=== PATIENT | female | born 1985 | race Caucasian/White ===

== ENCOUNTER 2016-07-25 21:28 | Emergency (ER) | payer OTHER ==
[2016-07-25] MEDS ORDERED: Ondansetron INJ* 2 MG/ML VIAL IV ONE (22:23)
[2016-07-25] MEDS ORDERED: NS 0.9% 1000 ML* 2,000 ML IV ONE (22:23)
[2016-07-25] MEDS ORDERED: Ketorolac INJ* 30 MG/ML 1 ML VIAL IV ONE (22:23)
[2016-07-25 23:12] LABS: Hematocrit 33 % (35-47); Hemoglobin 10.9 g/dl (12.0-16.0); Mean Corpuscular HGB Conc 33 g/dl (31-36); Mean Corpuscular Hemoglobin 24 pg (27-31); Mean Corpuscular Volume 74 fL (80-97); Mean Platelet Volume 7 um3 (7.4-10.4); Red Cell Distribution Width 15 % (10.5-15); White Blood Count 10.9 10^3/ul (3.5-10.8)
[2016-07-25 23:13] LABS: Add Diff/Slide Review? Slide Review Added; Comments Flag Yes
[2016-07-25 23:28] LABS: ALT 12 U/L (7-52); AST 13 U/L (13-39); Alkaline Phosphatase 59 U/L (34-104); Anion Gap 7 mmol/L (2-11); BUN/Creatinine Ratio 26.3 (8-20); Blood Urea Nitrogen 15 mg/dL (6-24); C Reactive Protein 19.97 mg/L (< 5.00); CO2 Carbon Dioxide 29 mmol/L (22-32); Calcium 9.1 mg/dL (8.6-10.3); Chloride 101 mmol/L (101-111); EGFR African American 158.1 (>60); EGFR Non-African American 122.9 (>60); Globulin 3.1 g/dL (2-4); Glucose 115 mg/dL (70-100); Lipase 19 U/L (11.0-82.0); Potassium 3.8 mmol/L (3.5-5.0); Sodium 137 mmol/L (133-145); Total Protein 7.1 g/dL (6.4-8.9)
[2016-07-25 23:52] LABS: TSH (Thyroid Stimulating Horm) 4.44 mcIU/mL (0.34-5.60)
[2016-07-25 23:55] LABS: Urine Bacteria Absent (Absent); Urine Bilirubin Negative (Negative); Urine Glucose Negative (Negative); Urine Nitrite Negative (Negative)
--- NOTE | 2016-07-26 01:08 | ED ---
Jermaine Patel Janilya, scribed for Imtiaz Abel MD on 07/25/16 at 2210 . Headache - HPI Summary HPI Summary: A 30 y/o female came in presenting w/ a c/o migraine for about 2 days and vaginal discharge and abd pain for about 3-4 days. Pt reports she usually has baseline migraine associated w/ her menstrual period. However, this time the severity is rated "off the charts". It is localized on the left side; typically , her migraines are on the right or left side. What is different from her usual migraines is that the pain radiates down her neck. Also, pain medication and sleep usually have alleviated her migraines in the past; not this time. According to pt, the severity of her LINDA caused her to become very nauseous, shaky, and dizzy. She has vomited 4 times. Her last menstrual period was on 04/2017. It lasted only 4 days; it normally lasts a week. On the , she noticed considerable amount of bloody vaginal discharge. It had resolved on its own. However, pt reports she noticed light vaginal discharge again 3-4 days ago. Pt denies diarrhea and dysuria. In addition, pt has left sided abd pain. Now, at [facility], LINDA mostly subsided and abd pain rated 7/10. Pt has 4 kids and had one miscarriage in 2007. PMHx 4 Caesarean sections. - History Of Current Complaint Chief Complaint: EDHeadache Stated Complaint: HEADACHE/CRAMPING LT SIDE AND LOWER BACK Time Seen by Provider: 07/25/16 22:01 Hx Obtained From: Patient Hx Last Menstrual Period: 03/21/15 Onset/Duration: Gradual Onset, Started days ago Initially Headache Was: "Worst Headache Ever" Timing: Constant - Allergies/Home Medications Allergies/Adverse Reactions: Allergies Allergy/AdvReac Type Severity Reaction Status Date / Time Fexofenadine [From [place]] Allergy Rash Verified 04/30/15 12:10 Hydrocodone [From Vicodin] Allergy Rash Verified 04/30/15 12:10 PMH/Surg Hx/FS Hx/Imm Hx - Surgical History Surgery Procedure, Year, and Place: 4 c sections. Tonsils and Adnoids. [place] [facility] Infectious Disease History: No Infectious Disease History: Denies: Hx Known/Suspected VRSA, Traveled Outside the [place] in Last 30 Days - Family History Known Family History: Positive: Cardiac Disease, Hypertension Negative: Diabetes - Social History Lives: With Family Alcohol Use: None Substance Use Type: Reports: None Smoking Status (MU): Never Smoked Tobacco Review of Systems Positive: Abdominal Pain - left sided, Vomiting, Nausea. Negative: Diarrhea Positive: discharge - bloody vaginal . Negative: dysuria Neurological: Other - shaky and dizzy Positive: Headache - migraine that radiates down to her neck All Other Systems Reviewed And Are Negative: Yes Physical Exam Triage Information Reviewed: Yes Vital Signs On Initial Exam: Initial Vitals Temp Pulse Resp BP Pulse Ox 99.3 F 88 20 155/97 100 07/25/16 21:32 07/25/16 21:32 07/25/16 21:32 07/25/16 21:32 07/25/16 21:32 Vital Signs Reviewed: Yes Appearance: Positive: Well-Appearing, No Pain Distress Skin: Positive: Warm, Skin Color Reflects Adequate Perfusion, Dry Head/Face: Positive: Normal Head/Face Inspection Eyes: Positive: EOMI, KEVAN ENT: Positive: Normal ENT inspection Neck: Positive: Supple, Nontender Respiratory/Lung Sounds: Positive: Clear to Auscultation, Breath Sounds Present Cardiovascular: Positive: RRR Abdomen Description: Positive: Nontender, Soft Bowel Sounds: Positive: Present Pelvic Exam: Positive: external exam normal, no cerv. motion tender, other - SOME WHITE DISCHARGE WITH SPECKS OF OLD BLOOD. Negative: active bleeding, lesions Musculoskeletal: Positive: Normal, Strength/ROM Intact Neurological: Positive: Normal, Sensory/Motor Intact, Alert, Oriented to Person Place, Time Psychiatric: Positive: Affect/Mood Appropriate Diagnostics - Vital Signs Vital Signs Temp Pulse Resp BP Pulse Ox 07/25/16 21:32 99.3 F 88 20 155/97 100 - Laboratory Lab Results: Lab Results 07/25/16 07/25/16 07/25/16 Range/Units 23:00 23:00 23:00 WBC 10.9 H (3.5-10.8) 10^3/ul RBC 4.50 (4.0-5.4) 10^6/ul Hgb 10.9 L (12.0-16.0) g/dl Hct 33 L (35-47) % MCV 74 L (80-97) fL MCH 24 L (27-31) pg MCHC 33 (31-36) g/dl RDW 15 (10.5-15) % Plt Count 369 (150-450) 10^3/ul MPV 7 L (7.4-10.4) um3 Neut % (Auto) 77.7 (38-83) % Lymph % (Auto) 15.4 L (25-47) % Hall % (Auto) 6.0 (1-9) % Eos % (Auto) 0.5 (0-6) % Baso % (Auto) 0.4 (0-2) % Absolute Neuts (auto) 8.4 H (1.5-7.7) 10^3/ul Absolute Lymphs (auto) 1.7 (1.0-4.8) 10^3/ul Absolute Monos (auto) 0.7 (0-0.8) 10^3/ul Absolute Eos (auto) 0.1 (0-0.6) 10^3/ul Absolute Basos (auto) 0 (0-0.2) 10^3/ul Absolute Nucleated RBC 0 10^3/ul Nucleated RBC % 0 INR (Anticoag Therapy) 0.92 (0.89-1.11) APTT 29.4 (26.0-36.3) seconds Sodium 137 (133-145) mmol/L Potassium 3.8 (3.5-5.0) mmol/L Chloride 101 (101-111) mmol/L Carbon Dioxide 29 (22-32) mmol/L Anion Gap 7 (2-11) mmol/L BUN 15 (6-24) mg/dL Creatinine 0.57 (0.51-0.95) mg/dL Est GFR ( Amer) 158.1 (>60) Est GFR (Non-Af Amer) 122.9 (>60) BUN/Creatinine Ratio 26.3 H (8-20) Glucose 115 H (70-100) mg/dL Lactic Acid (0.5-2.0) mmol/L Calcium 9.1 (8.6-10.3) mg/dL Total Bilirubin 0.30 (0.2-1.0) mg/dL AST 13 (13-39) U/L ALT 12 (7-52) U/L Alkaline Phosphatase 59 (34-104) U/L C-Reactive Protein 19.97 H (< 5.00) mg/L Total Protein 7.1 (6.4-8.9) g/dL Albumin 4.0 (3.2-5.2) g/dL Globulin 3.1 (2-4) g/dL Albumin/Globulin Ratio 1.3 (1-3) Lipase 19 (11.0-82.0) U/L TSH 4.44 (0.34-5.60) mcIU/mL Beta HCG, Quant < 0.60 mIU/mL Urine Color Urine Appearance Urine pH (5-9) Ur Specific Java (1.010-1.030) Urine Protein (Negative) Urine Ketones (Negative) Urine Blood (Negative) Urine Nitrate (Negative) Urine Bilirubin (Negative) Urine Urobilinogen (Negative) Ur Leukocyte Esterase (Negative) Urine WBC (Auto) (Absent) Urine RBC (Auto) (Absent) Ur Squamous Epith Cells (Absent) Urine Bacteria (Absent) Urine Glucose (Negative) 07/25/16 07/25/16 Range/Units 23:00 23:40 WBC (3.5-10.8) 10^3/ul RBC (4.0-5.4) 10^6/ul Hgb (12.0-16.0) g/dl Hct (35-47) % MCV (80-97) fL MCH (27-31) pg MCHC (31-36) g/dl RDW (10.5-15) % Plt Count (150-450) 10^3/ul MPV (7.4-10.4) um3 Neut % (Auto) (38-83) % Lymph % (Auto) (25-47) % Hall % (Auto) (1-9) % Eos % (Auto) (0-6) % Baso % (Auto) (0-2) % Absolute Neuts (auto) (1.5-7.7) 10^3/ul Absolute Lymphs (auto) (1.0-4.8) 10^3/ul Absolute Monos (auto) (0-0.8) 10^3/ul Absolute Eos (auto) (0-0.6) 10^3/ul Absolute Basos (auto) (0-0.2) 10^3/ul Absolute Nucleated RBC 10^3/ul Nucleated RBC % INR (Anticoag Therapy) (0.89-1.11) APTT (26.0-36.3) seconds Sodium (133-145) mmol/L Potassium (3.5-5.0) mmol/L Chloride (101-111) mmol/L Carbon Dioxide (22-32) mmol/L Anion Gap (2-11) mmol/L BUN (6-24) mg/dL Creatinine (0.51-0.95) mg/dL Est GFR ( Amer) (>60) Est GFR (Non-Af Amer) (>60) BUN/Creatinine Ratio (8-20) Glucose (70-100) mg/dL Lactic Acid 0.6 (0.5-2.0) mmol/L Calcium (8.6-10.3) mg/dL Total Bilirubin (0.2-1.0) mg/dL AST (13-39) U/L ALT (7-52) U/L Alkaline Phosphatase (34-104) U/L C-Reactive Protein (< 5.00) mg/L Total Protein (6.4-8.9) g/dL Albumin (3.2-5.2) g/dL Globulin (2-4) g/dL Albumin/Globulin Ratio (1-3) Lipase (11.0-82.0) U/L TSH (0.34-5.60) mcIU/mL Beta HCG, Quant mIU/mL Urine Color Yellow Urine Appearance Clear Urine pH 7.0 (5-9) Ur Specific Java 1.010 (1.010-1.030) Urine Protein Negative (Negative) Urine Ketones Negative (Negative) Urine Blood 1+ H (Negative) Urine Nitrate Negative (Negative) Urine Bilirubin Negative (Negative) Urine Urobilinogen Negative (Negative) Ur Leukocyte Esterase Negative (Negative) Urine WBC (Auto) Trace(0-5/hpf) (Absent) Urine RBC (Auto) 1+(3-5/hpf) H (Absent) Ur Squamous Epith Cells Present H (Absent) Urine Bacteria Absent (Absent) Urine Glucose Negative (Negative) Result Diagrams: 07/25/16 23:00 07/25/16 23:00 Lab Statement: Any lab studies that have been ordered have been reviewed, and results considered in the medical decision making process. Headache Course/Dx - Course Assessment/Plan: LINDA IMPROVED IN ED. DISCUSSED RESULTS WITH PATIENT. CT ABD/ PELVIS AND PELVIC CX RESULTS PENDING AT SHIFT CHANGE. DISCHARGE HOME STABLE. PATIENT WILL F/U WITH HER OBGYN. - Diagnoses Provider Diagnoses: Abdominal pain, Headache, Ovarian cyst Discharge - Discharge Plan Condition: Stable Disposition: HOME Patient Education Materials: Acute Abdominal Pain (ED), General Headache (ED), Ovarian Cyst (ED) Referrals: No Primary Care Phys,NOPCP [Primary Care Provider] - Additional Instructions: FOLLOW UP WITH YOUR OBGYN DOCTOR. RETURN TO THE EMERGENCY DEPARTMENT FOR ANY WORSENING OF YOUR CONDITION; PAIN, FEVER, YOU FEEL ILL OR QUESTIONS OR CONCERNS. The documentation as recorded by the Jermaine acosta Janilya accurately reflects the service I personally performed and the decisions made by me, Imtiaz Abel MD.
--- NOTE | 2016-07-26 02:35 | ED ---
Raad Patel Aidan, scribed for Jose Ramon Partida on 07/26/16 at 0212 . Progress - Progress Note Progress Note: The patient was signed out to follow a CT scan, which shows a left adnexal cyst. She feels fine. She also had an US. She should follow up with an OBGYN doctor. Results for STI is pending, otherwise, the Patient should follow up results with a doctor. Course/Dx - Diagnoses Provider Diagnoses: Abdominal pain, Headache, Ovarian cyst The documentation as recorded by the Raad acosta Aidan accurately reflects the service I personally performed and the decisions made by Jaquan hayes Emmanuel.
[2016-07-26 02:37] VITALS: BP 109/62
--- NOTE | 2016-07-26 07:13 | RAD ---
Indication: Left side pelvic pain. COMPARISON: There are no prior studies available for comparison. TECHNIQUE: Multiple real-time transabdominal images of the pelvis were obtained. FINDINGS: The uterus is retroflexed and normal in size, shape and echogenicity. The uterus measured 9.3 x 4.4 x 6.4 cm. The endometrial echo measured 0.7 cm in thickness. The right ovary measured 2.9 x 1.7 x 3.2 cm. The left ovary measured 4.1 x 2.5 x 3.6 cm. There is vascular flow within both ovaries. There is a small simple cyst in the left ovary measuring 2.2 x 2.5 x 2.4 cm. No free intraperitoneal fluid is seen. IMPRESSION: SMALL 2.5 CM SIMPLE CYST IN THE RIGHT OVARY MOST CONSISTENT WITH A FOLLICULAR CYST.
--- NOTE | 2016-07-26 07:42 | RAD ---
INDICATION: Left flank and left lower quadrant abdominal pain and hematuria. COMPARISON: Correlation is made with a prior pelvic ultrasound from July 25, 2016. TECHNIQUE: A CT scan of the abdomen and pelvis was performed without intravenous or oral contrast. Contiguous axial sections were obtained from the lung bases through the symphysis pubis. Images were reconstructed in the coronal and sagittal planes. FINDINGS: The lung bases are clear. No pleural effusion is present. The liver and spleen are normal in density. No significant focal abnormality is seen on this noncontrast study. No calcified gallstones are noted. No pancreatic ductal distention or calcifications are seen. The adrenal glands and kidneys are normal in size. No renal calculi or hydronephrosis is seen. No ureteral or bladder calculi are seen. The aorta is normal in caliber without significant calcific plaque. No significant enlarged retroperitoneal lymph nodes are seen. The stomach, small and large bowel appear nondistended. The appendix is within normal limits. There is mild descending and sigmoid diverticulosis without evidence for diverticulitis. There is a small periumbilical hernia containing fat. The uterus is retroflexed and normal in size. There is a 2.5 cm left ovarian cyst present. No free intraperitoneal air or fluid is seen. No significant focal osseous abnormality is seen. IMPRESSION: 2.5 CM LEFT OVARIAN CYST.
== END 2016-07-26 02:35 | disposition home or self-care (01) ==
LOC: ED 21:28
DX: N83.209 Unspecified ovarian cyst, unspecified side (principal); R10.9 Unspecified abdominal pain; R51 Headache; M54.2 Cervicalgia; R11.2 Nausea with vomiting, unspecified
CPT/HCPCS: 36415; 74176; 76856; 80053; 81003; 81015; 83605; 83690; 84443; 84702; 85025; 85610; 85730; 86140; 87480; 87491; 87510; 87591; 87661; 96361; 96374; 96375; 99282; J1885; J2405

== ENCOUNTER 2017-08-01 09:59 | Emergency (ER) | payer OTHER ==
[2017-08-01] MEDS ORDERED: Acetaminophen TAB* 325 MG PO ONE (11:44)
[2017-08-01] MEDS ORDERED: NS 0.9% 1000 ML* 1,000 ML IV ONE (11:44)
[2017-08-01 12:14] LABS: Urine Appearance Cloudy; Urine Blood 1+ (Negative); Urine Color Yellow; Urine Ketones Negative (Negative); Urine Protein Negative (Negative); Urine Urobilinogen Negative (Negative)
[2017-08-01 12:26] LABS: Hematocrit 30 % (35-47); Hemoglobin 9.3 g/dl (12.0-16.0); Mean Corpuscular HGB Conc 32 g/dl (31-36); Mean Corpuscular Hemoglobin 23 pg (27-31); Mean Corpuscular Volume 72 fL (80-97); Mean Platelet Volume 7 um3 (7.4-10.4); Platelet Count 315 10^3/ul (150-450); Red Blood Count 4.13 10^6/ul (4.0-5.4); Red Cell Distribution Width 17 % (10.5-15); White Blood Count 11.1 10^3/ul (3.5-10.8)
[2017-08-01 12:43] LABS: EGFR Non-African American 156.4 (>60)
--- NOTE | 2017-08-01 13:17 | RAD ---
INDICATION: Limited evaluation. Mechanical fall. Evaluate placenta. COMPARISON: None TECHNIQUE: Transabdominal imaging was performed as part of a limited evaluation. A anatomic survey was not requested or performed. FINDINGS: There is a single intrauterine gestation with movement and cardiac activity of 138 bpm. The placenta is posterior in location the caudal extent of the placenta is difficult to evaluate given the patient's body habitus. The cervix is closed measuring 4.6 cm. The amniotic fluid index is normal. The estimated gestational age based on biparietal diameter, head circumference, abdominal circumference, and femur length corresponds to 20 weeks 4 days, 21 weeks 3 days, 21 weeks 4 days, and 21 weeks 2 days resulting a composite value of 21 weeks 2 days. IMPRESSION: ARRIVAL INTRAUTERINE GESTATION AT 21 WEEKS 2 DAYS. THERE ARE NO DEFINITIVE ABNORMALITIES OF THE PLACENTA BUT THE LOWER EDGE OF THE PLACENTA IS DIFFICULT TO EVALUATE SECONDARY TO BODY HABITUS.
[2017-08-01 14:10] LABS: ABS Basophils 0 10^3/ul (0-0.2); ABS Eosinophils 0.1 10^3/ul (0-0.6); ABS Lymphocytes 2.2 10^3/ul (1.0-4.8); ABS Monocytes 0.9 10^3/ul (0-0.8); ABS Neutrophils 7.9 10^3/ul (1.5-7.7); ABS Nucleated RBC 0 10^3/ul; Eosinophil % 0.9 % (0-6); Lymphocyte % 19.8 % (25-47); Nucleated Red Blood Cells % 0
[2017-08-01 14:19] VITALS: BP 122/69
--- NOTE | 2017-08-02 10:54 | ED ---
Emily Patel Edward, scribed for Deejay Hutson MD on 08/01/17 at 1145 . - HPI Summary HPI Summary: 31 y/o female presents to the ED c/o back pain s/p fall this morning. The pain is located in the middle of the back, rated 7/10 in severity. Pt was walking when she fell backwards, slipped on ice. When she fell the pt's back hit her truck. The pain is aggravated with movement. Pt is 21 weeks . PMHx placenta previa. Denies vaginal bleeding/discharge. Sx 4 C sections. - History of Current Complaint Chief Complaint: EDGeneral Stated Complaint: FALL-21WKS PREG Time Seen by Provider: 08/01/17 11:30 Hx Obtained From: Patient Onset/Duration: Started Hours Ago Timing: Constant Current Severity: Moderate Pain Intensity: 7 Location of Pain: Other: - back Aggravating Factors: Movement Alleviating Factors: Nothing Associated Signs and Symptoms: Positive: Back Pain. Negative: Vaginal Bleeding or Discharge - Assessment Hx Now: - unsure, no period this month - Allergies/Home Medications Allergies/Adverse Reactions: Allergies Allergy/AdvReac Type Severity Reaction Status Date / Time Fexofenadine [From [place]] Allergy Rash Verified 08/01/17 10:03 Hydrocodone [From Vicodin] Allergy Rash Verified 08/01/17 10:03 PMH/Surg Hx/FS Hx/Imm Hx Previously Healthy: No - Positive: placenta previa Opthamlomology History: Denies: Hx Legally Blind Neurological History: Reports: Hx Migraine - Surgical History Surgery Procedure, Year, and Place: 4 c sections. Tonsils and Adnoids. [place] [facility] Infectious Disease History: No Infectious Disease History: Denies: Hx Known/Suspected VRSA, Traveled Outside the [place] in Last 30 Days - Family History Known Family History: Positive: Cardiac Disease, Hypertension Negative: Diabetes - Social History Alcohol Use: None Substance Use Type: Reports: None Smoking Status (MU): Never Smoked Tobacco Review of Systems Constitutional: Negative Eyes: Negative ENT: Negative Cardiovascular: Negative Respiratory: Negative Gastrointestinal: Negative Genitourinary: Negative Positive: Arthralgia - back pain Skin: Negative Neurological: Negative Psychological: Normal All Other Systems Reviewed And Are Negative: Yes Physical Exam - Summary Physical Exam Summary: VITAL SIGNS: Reviewed. GENERAL: Patient is a well-developed and nourished female who is lying comfortable in the stretcher. Patient is not in any acute respiratory distress. HEAD AND FACE: No signs of trauma. No ecchymosis, hematomas or skull depressions. No sinus tenderness. EYES: PERRLA, EOMI x 2, No injected conjunctiva, no nystagmus. EARS: Hearing grossly intact. Ear canals and tympanic membranes are within normal limits. MOUTH: Oropharynx within normal limits. NECK: Supple, trachea is midline, no adenopathy, no JVD, no carotid bruit, no c- spine tenderness, neck with full ROM. CHEST: Symmetric, no tenderness at palpation LUNGS: Clear to auscultation bilaterally. No wheezing or crackles. CVS: Regular rate and rhythm, S1 and S2 present, no murmurs or gallops appreciated. ABDOMEN: Soft, obese, non-tender. No signs of distention. No rebound no guarding , and no masses palpated. Bowel sounds are normal. EXTREMITIES: FROM in all major joints, no edema, no cyanosis or clubbing. MUSCULOSKELETAL: Paraspinal muscle tenderness in the T spine. There is no vertebral tenderness. NEURO: Alert and oriented x 3. No acute neurological deficits. Speech is normal and follows commands. SKIN: Dry and warm - Physical Exam Triage Information Reviewed: Yes Vital Signs Reviewed: Yes Diagnostics - Vital Signs Vital Signs Temp Pulse Resp BP Pulse Ox 08/01/17 10:03 99.9 F 95 16 174/99 100 - Laboratory Result Diagrams: 08/01/17 12:10 08/01/17 12:10 Lab Statement: Any lab studies that have been ordered have been reviewed, and results considered in the medical decision making process. - Ultrasound No standard instances Ultrasound Interpretation: No Acute Changes - US - ARRIVAL INTRAUTERINE GESTATION AT 21 WEEKS 2 DAYS. THERE ARE NO DEFINITIVE ABNORMALITIES OF THE PLACENTA BUT THE LOWER EDGE OF THE PLACENTA IS DIFFICULT TO EVALUATE SECONDARY TO BODY HABITUS. Ultrasound Interpretation Completed By: Radiologist - ED PHYSICIAN REVIEWS AND AGREES - EKG 1 EKG Interpretation: 12:56 - SR @ [address] elevations. Re-Evaluation - Re-Evaluation 1 Re-Evaluation Time: 14:14 Comment: Discuss US results, plan of care Course/Dx - Course Assessment/Plan: 31 y/o female presents to the ED c/o back pain s/p fall this morning. The pain is located in the middle of the back, rated 7/10 in severity. Pt was walking when she fell backwards, slipped on ice. When she fell the pt's back hit her truck. The pain is aggravated with movement. Pt is 21 weeks . PMHx placenta previa. Denies vaginal bleeding/discharge. Sx 4 C sections. EKG - 12:56 - SR @ [address] elevations. Test results are without significant abnormalities except chronic anemia since the pt is . Ua uti. Kb hemoglobin 0.00. I discussed the test results and findings with Dr. Alan who is ok for the pt to be d/c home with f/u with ob-screw machine adjuster automatic. pt given Tylenol and reported sx improved. She is feeling better. The pt is hemodynamically stable, A&Ox3. - Diagnoses Provider Diagnoses: Accidental fall, Back pain - Provider Notifications Discussed Care Of Patient With: Sarahy Alan Time Discussed With Above Provider: 14:15 Instructed by Provider To: Other - Ok to d/c Discharge - Discharge Plan Condition: Stable Disposition: HOME Patient Education Materials: (ED), Back Pain (ED), Fall Prevention ( ED) Referrals: Michelle GILLIAM,Artemio Avery [Primary Care Provider] - 4 Days (PLEASE F/U IN 3-5 DAYS) The documentation as recorded by the Emily acosta Edward accurately reflects the service I personally performed and the decisions made by , Deejay Hutson MD.
== END 2017-08-01 14:18 | disposition home or self-care (01) ==
LOC: ED 09:59
DX: O26.892 Other specified pregnancy related conditions, second trimester (principal); Z3A.21 21 weeks gestation of pregnancy; M54.9 Dorsalgia, unspecified
CPT/HCPCS: 36415; 76815; 80053; 81003; 81015; 83030; 85025; 96360; 99283; A9270-GY